=== PATIENT | female | born 1990 ===

== ENCOUNTER 2017-03-15 15:11 | Emergency (ER) | payer SELFPAY ==
[2017-03-15 16:01] VITALS: BMI 24.0
--- NOTE | 2017-03-15 16:23 | OBHP ---
Datetime: 03/15/2017 16:10 IP Adm Impression: , intrauterine ; No Active Labor; Intact Membranes IP Admit Plan: Observation/Evaluation Admit Comment, IP Provider: IUP at 32w (acc to pt -EDC May 04) c/o three dyas of lower abd d iscomfort midline non radiating (she points to the discomfort being around her previous surgical scar ). No SROM. No VB./ +FM PNC: [facility] (undocumented PNC) - she states no complications during this preg PMH: denies PSH: abdominoplasty PSoH: denies smoking ETOH drugs; moved to [facility] from [facility] 2w ago; lives with cousin; speaks only romanian (translated by [facility] nurse) Allergy A: IUP at 32w by pt dates/undoc PNC Abd pain : check FFN/UA pt given names/phone numbres of places for PNC sono dating Pelvic Type - PN: Adequate Extremities - PN: Normal Abdomen - PN: Abnormal Back - PN: Normal Breast - PN: Not Done Lungs - PN: Normal Heart - PN: Normal Thyroid - PN: Normal Neurologic - PN: Normal HEENT - PN: Normal General - PN: Normal FHR - Baseline A Provider: 140 Membranes, Provider: Intact Contraction Comments Provider: none Comments, ACOG Physical Exam: ROS: General: no weakness; no fatigue HEENT: no EM; no visual dist CV: no palpitations; no no CP GI: no N/V no diarhea No epigastric pain; non radiating : no F/U/D MS: No joint pain EXAM: abd scar Pool Provider: Negative IP Hx Assessment: Undocumented from [facility] IP Chief Complaint: Other NICHD Variability Prov Fetus A: Moderate 6-25bpm NICHD Accel Fetus A IP Provider: [id number] FHR Category Provider Fetus A: Category I NICHD Decel Fetus A IP Provider: None Dilatation, Provider: 0 Genitourinary Exam: Normal DTRs - PN: Normal
[2017-03-15 16:33] LABS: RBC URINE 4 /hpf (0-3); URINE BACTERIA RARE (<OCC); URINE BILIRUBIN NEGATIVE (NEGATIVE); URINE BLOOD NEGATIVE (NEGATIVE); URINE COLOR YELLOW (YELLOW); URINE GLUCOSE (UA) NEG (Normal); URINE KETONE NEGATIVE (NEGATIVE); URINE LEUKOCYTE ESTERASE NEG Leu/uL (Negative); URINE PROTEIN NEGATIVE (NEGATIVE); URINE UROBILINOGEN 0.2-1.0 mg/dL (0.2-1.0); WBC URINE < 1 /hpf (0-5)
--- NOTE | 2017-03-15 17:21 | US ---
Indication: dating sono; care in [facility] Comparison: None available. Technique: Real-time ultrasound was performed through the pelvis. Findings: There is a single living fetus in cephalic presentation. Posterior fundal placenta. The placenta is not previa. AURELIANO measures approximately 11.6 cm, within normal limits. There are no adnexal masses or cysts evident. Cervix length measures approximately 4.6 cm and appears closed. The study was performed for the purposes of emergent evaluation and the whole anatomic survey of the fetus was not performed. This should be performed on an outpatient elective basis as clinically warranted. Measurements and calculations: Fetus has a composite sonographic age of 29 weeks 4 days. This calculation is based on the biparietal diameter, head circumference, abdominal circumference, and femur length. Estimated heart rate 140.7 beats per min. Impression: Single living fetus with a composite sonographic age of 29 weeks 4 days. Estimated heart rate 140.7 beats per min.
--- NOTE | 2017-03-15 17:39 | OBDCSUM ---
Datetime: 03/15/2017 17:27 Discharged to, Provider: Home Follow up at, Provider: [facility] / PMD Disch Instr Activity: Normal activity Disch Instr Diet: Regular Discharge Instructions, Provider: Routine instructions given Discharge Diagnosis, Provider: False Labor - Undelivered Discharge Time: 03/15/2017 17:29 Follow up in weeks, Provider: 1-2w Contraception discussed, Prov: No Disch Activity Restrictions: No sexual activity; Nothing in vagina - [place], tampons, douche Discharge Comment, Provider: 29.4 wks IUP (per u/s done today). Pt came to [facility] for abdomina l discomfort, symptoms resolved. Pt is discharged home. Given copies of UA, FFN (both negative) and o f U/S. Pt given information about [facility] clinic and endorsed that she follow up in clinic for her prenat al work.
[2017-03-15 23:07] VITALS: BP 115/68; PULSE 83; O2SAT 100
== END 2017-03-15 16:20 | disposition home or self-care (01) ==
LOC: H.EROB2 15:11 → H.EROB 15:41 → H.EROB2 16:20
DX: O47.03 False labor before 37 completed weeks of gestation, third trimester (principal); Z3A.32 32 weeks gestation of pregnancy